=== PATIENT | male | born 1955 | race African-American/Black ===

== ENCOUNTER 2016-11-23 06:51 | Day surgery (SDC) | payer MEDICARE, OTHER ==
[~2016-11-23] VITALS: Ht 175.3 cm; Wt 104.5 kg
[~2016-11-23 06:51] MED LIST: ADV500 IH; ALLO300T2 PO; BECL8.7A5 IH; BUDE10.2 IH; COMBIH IH; FLUT16H NS; HYDR25TA PO; LORA-703 PO; OMEP20CA10 PO; PRED10TA3 PO; SENN-31 PO; SODI88SP6 NS; SODIUM CHLORIDE 0.9% 1,000 ML IV ONE
[2016-11-23] MEDS ORDERED: SODIUM CHLORIDE 0.9% 1,000 ML IV ONE (07:04)
[2016-11-23] MEDS ORDERED: PRAV40 PO ×2 (07:26→08:14)
[2016-11-23 07:42] LABS: GLUCOSE,POINT OF CARE 73 MG/DL (70-110)
[2016-11-23] MEDS ORDERED: MIDAZOLAM HCL 2 MG/2 ML VIAL ONE (07:48)
[2016-11-23] MEDS ORDERED: FentaNYL CITRATE-PF 100 MCG/2 ML VIAL ONE (07:49)
[2016-11-23] MEDS ORDERED: MULT1TAB70 PO (08:14)
[2016-11-23] MEDS ORDERED: NEOM10DR44 AU (08:14)
[2016-11-23] MEDS ORDERED: FAMO20TA8 PO (08:14)
[2016-11-23] MEDS ORDERED: HYDR25TA PO (08:14)
[2016-11-23] MEDS ORDERED: CORTSOL OT (08:14)
[2016-11-23] MEDS ORDERED: DILT120T PO (08:14)
[2016-11-23] MEDS ORDERED: MONT10TA21 PO (08:14)
[2016-11-23] MEDS ORDERED: LACT30L PO (08:14)
[2016-11-23] MEDS ORDERED: LINA290C PO (08:14)
[2016-11-23] MEDS ORDERED: POTA8CAP10 PO (08:14)
[2016-11-23] MEDS ORDERED: ALBU8.5H IH (08:14)
[2016-11-23] MEDS ORDERED: [UNRECOGNIZED DRUG - CODE] PO (08:14)
[2016-11-23] MEDS ORDERED: FURO40 PO (08:14)
[2016-11-23] MEDS ORDERED: ESCI10TA PO (08:14)
[2016-11-23] MEDS ORDERED: CIPR-278 PO (08:14)
[2016-11-23] MEDS ORDERED: LEVO500 PO (08:14)
[2016-11-23] MEDS ORDERED: FLUT16H NASAL (08:14)
[2016-11-23] MEDS ORDERED: ATOR10TA84 PO (08:14)
[2016-11-23] MEDS ORDERED: IPRAHFA IH (08:14)
[2016-11-23] MEDS ORDERED: DEXL60CA3 PO (08:14)
[2016-11-23] MEDS ORDERED: IPRA4AER IH (08:14)
[2016-11-23] MEDS ORDERED: GLYB5 PO (08:14)
[2016-11-23] MEDS ORDERED: NAPR-58 PO (08:14)
[2016-11-23] MEDS ORDERED: MOME13HF IH (08:14)
[2016-11-23] MEDS ORDERED: CHOL200012 PO (08:14)
[2016-11-23] MEDS ORDERED: CITA20TA9 PO (08:14)
[2016-11-23] MEDS ORDERED: CEPH250 PO (08:14)
[2016-11-23] MEDS ORDERED: PRED10 PO (08:14)
[2016-11-23] MEDS ORDERED: PANT40TA25 PO (08:14)
[2016-11-23] MEDS ORDERED: TAMS0.4C32 PO (08:14)
[2016-11-23] MEDS ORDERED: P-EP-31 PO (08:14)
[2016-11-23] MEDS ORDERED: MethylPREDNISolone SOD SUCC 125 MG/2 ML VIAL IVP ONE (08:30)
[2016-11-23] MEDS ORDERED: MethylPREDNISolone SOD SUCC 125 MG/2 ML VIAL ONE (09:05)
[2016-11-23] MEDS ORDERED: ALBUTEROL SULFATE 2.5 MG/0.5 ML NEB SOLUTION NEB ONE (16:33)
[2016-11-23] MEDS ORDERED: LIDOCAINE HCL 2% 30 ML JELLY TP ONE (16:33)
[2016-11-23] MEDS ORDERED: BENZOCAINE 20% 50 MCG/SPRAY 57 GM TP ONE (16:33)
[2016-11-23] MEDS ORDERED: LIDOCAINE HCL 4% 50 ML SOLUTION TP ONE (16:33)
[2016-11-23] MEDS ORDERED: OXYGEN THERAPY IH SCH (20:00)
== END 2016-11-23 10:15 | disposition home or self-care (01) ==
LOC: SURGERY 06:51
PROVIDERS: ATTEND Internal Medicine Critical Care Medicine
DX: B37.0 Candidal stomatitis (principal); Z98.890 Other specified postprocedural states; Z79.899 Other long term (current) drug therapy
CPT/HCPCS: 31623; 31624; 71010; 82962; 87015 ×2; 87070; 87077; 87101; 87147; 87205; 87220; 88108; 88312; J2250; J2930; J3010; J7030

== ENCOUNTER 2021-01-16 13:45 | Emergency (ER) | payer OTHER ==
[~2021-01-16] VITALS: Ht 175.3 cm; Wt 118.2 kg
[~2021-01-16 13:45] MED LIST changes: -ADV500 IH; +ALBU8.5H8 IH; -ALLO300T2 PO; +ATOR10TA84 PO; -BECL8.7A5 IH; +BENZ200C53 PO; -BUDE10.2 IH; +CEPH250 PO; +CHOL500013 PO; +CIPR-278 PO; +CITA-144 PO; -COMBIH IH; +CORTSOL OT; +DEXL60CA3 PO; +DILT120T PO; +DOCU-350 PO; +ESCI-8 PO; +FAMO20TA8 PO; +FLUT16H NASAL; -FLUT16H NS; +FLUT1DIS26 IH; +FURO40 PO; +GLYB5TAB10 PO; -HYDR25TA PO; +HYDR25TA2 PO; +IPRA3AMP24 NEB; +IPRA4AER IH; +IPRAHFA IH; +LACT30L PO; +LEVO-72 PO; +LINA290C PO; -LORA-703 PO; +MOME13HF IH; +MONT-35 PO; +MULT-660 PO; +NAPR-1025 PO; +NEOM10DR44 AU; -OMEP20CA10 PO; +P-EP-31 PO; +PANT-31 PO; +POTA8CAP20 PO; +PRAV40TA4 PO; +PRED10 PO; -PRED10TA3 PO; -SENN-31 PO; -SODI88SP6 NS; -SODIUM CHLORIDE 0.9% 1,000 ML IV ONE; +SUCR1TAB PO; +TAMS-13 PO; +[UNRECOGNIZED DRUG - CODE] PO
[2021-01-16 13:56] VITALS: BP 127/61
[2021-01-16 14:54] LABS: COVID AG,FIA SOURCE NASOPHARYNGEAL
== END 2021-01-16 14:50 | disposition home or self-care (01) ==
LOC: EMS 13:50
DX: Z01.84 Encounter for antibody response examination (principal); Z20.822 Contact with and (suspected) exposure to COVID-19; Z79.899 Other long term (current) drug therapy
CPT/HCPCS: 87426; 99283; C9803